=== PATIENT | male | born 1940 | race Caucasian/White ===

== ENCOUNTER 2022-01-14 03:31 | Outpatient (RCR) | payer MEDICARE, BC, SELFPAY | END 2022-02-09 23:59 | disposition home or self-care (01) | LOC: INF 03:31 | PROVIDERS: PCP Hospitalist; Visit Provider Nurse Practitioner Acute Care | DX: C91.10 Chronic lymphocytic leukemia of B-cell type not having achieved remission (principal); Z29.8 Encounter for other specified prophylactic measures | CPT/HCPCS: 96372; Q0221 ==

== ENCOUNTER → 2022-03-10 13:40 | Outpatient (BNVA) | payer MEDICARE, BC, SELFPAY | PROVIDERS: PCP Hospitalist; Referring Provider Internal Medicine Hematology & Oncology; Visit Provider Nurse Practitioner Adult Health | DX: R29.2 Abnormal reflex (principal); R29.810 Facial weakness; H93.25 Central auditory processing disorder; R90.89 Other abnormal findings on diagnostic imaging of central nervous system | CPT/HCPCS: 99204 ==

== ENCOUNTER → 2022-04-07 10:50 | Outpatient (BNVA) | payer MEDICARE, BC, SELFPAY | PROVIDERS: PCP Hospitalist; Referring Provider Hospitalist; Visit Provider Nurse Practitioner Adult Health | DX: R29.810 Facial weakness (principal); R29.2 Abnormal reflex; H90.3 Sensorineural hearing loss, bilateral | CPT/HCPCS: 99213; 99214 ==